=== PATIENT | male | born 1970 | race Two or more races ===

== ENCOUNTER 2020-05-30 02:17 | Inpatient (IN) | payer BC, OTHER ==
[~2020-05-30] VITALS: Ht 175.3 cm; Wt 90.1 kg
[2020-05-30] MEDS ORDERED: PLEASE ENTER ALLERGIES MC SCH (02:30)
[2020-05-30] MEDS ORDERED: methylPREDNISolone SOD SUCC 125 MG/2 ML IV ONE (02:30)
[2020-05-30 02:54] LABS: MEAN CORPUSCULAR HGB CONC 32.8 g/dL (33.2-36.2); MEAN PLATELET VOLUME 8.4 fL (7.4-10.4)
[2020-05-30 02:56] LABS: BASOPHILS % (AUTO) 0 % (0-1); EOSINOPHILS % (AUTO) 1 % (1-7); LYMPHOCYTES % (AUTO) 8 % (22-44); MEAN CORPUSCULAR HEMOGLOBIN 27.6 pg (27.5-34.5); MONOCYTES % (AUTO) 6 % (2-9); NEUTROPHILS % (AUTO) 84 % (42-75); PLATELET COUNT 264 x10^3/uL (130-400); RED BLOOD COUNT 4.21 x10^6/uL (4.38-5.82); RED CELL DISTRIBUTION WIDTH 14.3 % (9.4-14.8)
[2020-05-30 02:58] LABS: MD NO
--- NOTE | 2020-05-30 03:00 | NUR ---
PT IS COVID + FOR THE LAST 2 WEEKS, PT C/O INCREASED SOB. [facility] STATED PT WAS IN THE 70% AT ROOM AIR AT CONTACT AND 87 ON 15L O2 NRB.
[2020-05-30 03:03] LABS: ALANINE AMINOTRANSFERASE 26 U/L (12-78); ALBUMIN 0.8 g/dL (3.4-5.0); ANION GAP 10 mmol/L (5-15); CALCIUM 8.1 mg/dL (8.5-10.1); CHLORIDE 107 mmol/L (98-107); CREATININE 3.66 mg/dL (0.7-1.3)
[2020-05-30 03:07] LABS: ALKALINE PHOSPHATASE 96 U/L (45-117); BILIRUBIN,TOTAL 0.3 mg/dL (0.2-1.0); TOTAL PROTEIN 6.1 g/dL (6.4-8.2); TROPONIN I 0.024 ng/mL (0.000-0.045)
[2020-05-30] MEDS ORDERED: methylPREDNISolone SOD SUCC 125 MG/2 ML ONE (03:11)
--- NOTE | 2020-05-30 03:53 | NUR ---
BREAK RN: PT. VS UPDATED AND STABLE. DR. ESPITIA IN TO DISCUSS PLAN FOR ADMISSION WITH PT.
[2020-05-30] MEDS ORDERED: CEFTRIAXONE PMX 1GM/50ML 50 ML IV ONE (04:00)
[2020-05-30] MEDS ORDERED: AZITHROMYCIN 500 MG in SODIUM CHLORIDE 0.9% 250 ML IV ONE (04:00)
[2020-05-30] MEDS ORDERED: OXYcodone IR 5MG TABLET PO PRN (04:30)
[2020-05-30] MEDS ORDERED: BISACODYL 10 MG SUPP PR PRN (04:30)
[2020-05-30] MEDS ORDERED: ONDANSETRON ODT 4 MG PO PRN (04:30)
[2020-05-30] MEDS ORDERED: ACETAMINOPHEN 325 MG TABLET PO PRN (04:30)
[2020-05-30] MEDS ORDERED: DEXAMETHASONE 4 MG/ML, 1ML IVPush SCH (04:30)
[2020-05-30] MEDS ORDERED: hydrALAzine 20 MG/ML, 1ML IVPush PRN (04:30)
[2020-05-30] MEDS ORDERED: DOCUSATE 100 MG CAPSULE PO PRN (04:30)
[2020-05-30] MEDS ORDERED: PROMETHAZINE 25 MG/ML, 1ML IM PRN (04:30)
[2020-05-30] MEDS ORDERED: SODIUM CHLORIDE 0.9% 1,000 ML IV SCH (04:30)
[2020-05-30] MEDS ORDERED: POLYETHYLENE GLYCOL 17 GM PACKET PO PRN (04:30)
[2020-05-30] MEDS ORDERED: ONDANSETRON 2MG/ML, 2ML IVPush PRN (04:30)
[2020-05-30] MEDS ORDERED: morphine SULFATE 10 MG/ML, 1ML IVPush PRN (04:30)
[2020-05-30] MEDS ORDERED: CEFTRIAXONE PMX 1GM/50ML 50 ML ONE (04:46)
[2020-05-30 05:36] VITALS: BP 133/87
[2020-05-30] MEDS: INSULIN LISPRO 100 UNITS/ML, PEN SQ-INSULIN SCH ×4 (06:11→20:24)
[2020-05-30 06:38] VITALS: BP 134/88
[2020-05-30] MEDS ORDERED: INSU100I13 INJ (08:21)
[2020-05-30] MEDS ORDERED: INSULIN GLARGINE 100 UNITS/ML, PEN SQ-INSULIN SCH ×2 (09:00→21:00)
[2020-05-30] MEDS ORDERED: REMDESIVIR 100 MG in SODIUM CHLORIDE 0.9% 250 ML IVPB ONE (09:00)
[2020-05-30] MEDS ORDERED: ENOXAPARIN 40 MG/0.4 ML SQ SCH (09:00)
[2020-05-30] MEDS: CHOLECALCIFEROL 5,000u TAB PO SCH (10:04)
[2020-05-30] MEDS: ASCORBIC ACID 500 MG TABLET PO SCH ×2 (10:04→17:12)
[2020-05-30] MEDS: ZINC SULFATE 220 MG CAPSULE PO SCH (10:05)
[2020-05-30] MEDS: THIAMINE 100MG TABLET PO SCH (10:05)
[2020-05-30] MEDS: DEXAMETHASONE 4 MG/ML, 1ML IVPush SCH (10:05)
[2020-05-30] MEDS ORDERED: HEPARIN 5,000 UNITS/ML, 1ML IV ONE (16:00)
[2020-05-30 16:32] LABS: MICROSCOPIC AUTO
[2020-05-30 16:33] LABS: CHLORIDE,URINE RANDOM 19 mmol/L; POTASSIUM,URINE RANDOM 33 mmol/L; SODIUM,URINE RANDOM 17 mmol/L
[2020-05-30] MEDS: HEPARIN 25,000 UNITS/250ML PMX 250 ML IV PRN (16:58)
[2020-05-31] MEDS: INSULIN LISPRO 100 UNITS/ML, PEN SQ-INSULIN SCH ×6 (01:03→19:41)
[2020-05-31] MEDS: CEFTRIAXONE PMX 1GM/50ML 50 ML IV SCH (01:03)
[2020-05-31] MEDS: AZITHROMYCIN 500 MG in SODIUM CHLORIDE 0.9% 250 ML IV SCH (02:58)
[2020-05-31 03:58] LABS: BASOPHILS % (AUTO) 0 % (0-1); EOSINOPHILS % (AUTO) 0 % (1-7); LYMPHOCYTES % (AUTO) 8 % (22-44); MEAN CORPUSCULAR HEMOGLOBIN 27.4 pg (27.5-34.5); MEAN PLATELET VOLUME 8.1 fL (7.4-10.4); MONOCYTES % (AUTO) 5 % (2-9); NEUTROPHILS % (AUTO) 87 % (42-75); PLATELET COUNT 234 x10^3/uL (130-400); RED BLOOD COUNT 4.06 x10^6/uL (4.38-5.82); RED CELL DISTRIBUTION WIDTH 14.4 % (9.4-14.8)
[2020-05-31 03:59] LABS: MD NO
[2020-05-31 04:08] LABS: ALANINE AMINOTRANSFERASE 36 U/L (12-78); ALBUMIN 0.7 g/dL (3.4-5.0); ANION GAP 10 mmol/L (5-15); CALCIUM 8.4 mg/dL (8.5-10.1); CHLORIDE 113 mmol/L (98-107)
[2020-05-31 04:17] LABS: ALKALINE PHOSPHATASE 111 U/L (45-117); BILIRUBIN,TOTAL 0.2 mg/dL (0.2-1.0); CHOL/HDL RATIO 11.2; CHOLESTEROL, TOTAL 191 mg/dL (140-239); CREATININE 3.22 mg/dL (0.7-1.3); HDL CHOL % 9 % (26-37); HDL CHOLESTEROL (DIRECT) 17 mg/dL (40-60); LDL CHOLESTEROL,CALCULATED 114 mg/dL (54-169); LDL/HDL RATIO 6.7 (0.5-3.0); TOTAL PROTEIN 5.7 g/dL (6.4-8.2); TRIGLYCERIDES 302 mg/dL (50-200); VLDL CHOLESTEROL 60 mg/dL (0-25)
[2020-05-31] MEDS: HEPARIN 5,000 UNITS/ML, 1ML IV PRN ×2 (05:15→12:55)
[2020-05-31 09:00] LABS: FREE T4 (FREE THYROXINE) 1.01 ng/dL (0.76-1.46)
[2020-05-31] MEDS ORDERED: INSULIN GLARGINE 100 UNITS/ML, PEN SQ-INSULIN SCH (09:00)
[2020-05-31] MEDS: ZINC SULFATE 220 MG CAPSULE PO SCH (09:01)
[2020-05-31] MEDS: THIAMINE 100MG TABLET PO SCH (09:01)
[2020-05-31] MEDS: ASCORBIC ACID 500 MG TABLET PO SCH ×2 (09:01→17:11)
[2020-05-31] MEDS: DEXAMETHASONE 4 MG/ML, 1ML IVPush SCH (09:01)
[2020-05-31] MEDS: CHOLECALCIFEROL 5,000u TAB PO SCH (09:01)
[2020-05-31] MEDS: REMDESIVIR 50 MG in SODIUM CHLORIDE 0.9% 250 ML IVPB SCH (10:31)
[2020-05-31] MEDS: SODIUM BICARBONATE 650 MG TABLET PO SCH ×2 (10:34→19:40)
[2020-05-31] MEDS: HEPARIN 25,000 UNITS/250ML PMX 250 ML IV PRN (14:29)
[2020-05-31] MEDS ORDERED: INSULIN LISPRO 100 UNITS/ML, PEN SQ-INSULIN ONE (18:30)
[2020-05-31] MEDS: INSULIN GLARGINE 100 UNITS/ML, PEN SQ-INSULIN SCH (19:42)
[2020-06-01] MEDS: INSULIN LISPRO 100 UNITS/ML, PEN SQ-INSULIN SCH ×6 (00:22→20:02)
[2020-06-01] MEDS: CEFTRIAXONE PMX 1GM/50ML 50 ML IV SCH (00:23)
[2020-06-01] MEDS: AZITHROMYCIN 500 MG in SODIUM CHLORIDE 0.9% 250 ML IV SCH (04:18)
[2020-06-01 04:50] LABS: ALANINE AMINOTRANSFERASE 43 U/L (12-78); ALBUMIN 0.8 g/dL (3.4-5.0); ANION GAP 9 mmol/L (5-15); CALCIUM 8.2 mg/dL (8.5-10.1); CHLORIDE 113 mmol/L (98-107); CREATININE 2.63 mg/dL (0.7-1.3)
[2020-06-01 04:52] LABS: ALKALINE PHOSPHATASE 155 U/L (45-117); BILIRUBIN,TOTAL 0.2 mg/dL (0.2-1.0); TOTAL PROTEIN 5.9 g/dL (6.4-8.2)
[2020-06-01 07:32] LABS: BASOPHILS % (AUTO) 0 % (0-1); EOSINOPHILS % (AUTO) 0 % (1-7); LYMPHOCYTES % (AUTO) 5 % (22-44); MEAN CORPUSCULAR HGB CONC 32.8 g/dL (33.2-36.2); MEAN PLATELET VOLUME 9.4 fL (7.4-10.4); MONOCYTES % (AUTO) 3 % (2-9); NEUTROPHILS % (AUTO) 92 % (42-75); PLATELET COUNT 296 x10^3/uL (130-400); RED BLOOD COUNT 4.37 x10^6/uL (4.38-5.82); RED CELL DISTRIBUTION WIDTH 14.7 % (9.4-14.8)
[2020-06-01 07:41] LABS: MD NO
[2020-06-01] MEDS: HEPARIN 25,000 UNITS/250ML PMX 250 ML IV PRN (09:11)
[2020-06-01] MEDS: ZINC SULFATE 220 MG CAPSULE PO SCH (09:16)
[2020-06-01] MEDS: CHOLECALCIFEROL 5,000u TAB PO SCH (09:16)
[2020-06-01] MEDS: DEXAMETHASONE 4 MG/ML, 1ML IVPush SCH (09:16)
[2020-06-01] MEDS: SODIUM BICARBONATE 650 MG TABLET PO SCH ×4 (09:16→20:02)
[2020-06-01] MEDS: ASCORBIC ACID 500 MG TABLET PO SCH ×2 (09:16→16:35)
[2020-06-01] MEDS: THIAMINE 100MG TABLET PO SCH (09:16)
[2020-06-01] MEDS: INSULIN GLARGINE 100 UNITS/ML, PEN SQ-INSULIN SCH ×2 (09:17→20:02)
[2020-06-01] MEDS: REMDESIVIR 50 MG in SODIUM CHLORIDE 0.9% 250 ML IVPB SCH (10:08)
[2020-06-02] MEDS: INSULIN LISPRO 100 UNITS/ML, PEN SQ-INSULIN SCH ×7 (00:56→23:37)
[2020-06-02] MEDS: CEFTRIAXONE PMX 1GM/50ML 50 ML IV SCH (01:59)
[2020-06-02] MEDS: AZITHROMYCIN 500 MG in SODIUM CHLORIDE 0.9% 250 ML IV SCH (02:13)
[2020-06-02 04:34] LABS: BASOPHILS % (AUTO) 0 % (0-1); EOSINOPHILS % (AUTO) 0 % (1-7); LYMPHOCYTES % (AUTO) 7 % (22-44); MEAN PLATELET VOLUME 8.4 fL (7.4-10.4); MONOCYTES % (AUTO) 6 % (2-9); NEUTROPHILS % (AUTO) 87 % (42-75); PLATELET COUNT 271 x10^3/uL (130-400); RED BLOOD COUNT 4.46 x10^6/uL (4.38-5.82); RED CELL DISTRIBUTION WIDTH 14.8 % (9.4-14.8)
[2020-06-02 04:36] LABS: MD NO
[2020-06-02 04:41] LABS: ALANINE AMINOTRANSFERASE 47 U/L (12-78); ALBUMIN 0.9 g/dL (3.4-5.0); ANION GAP 9 mmol/L (5-15); CALCIUM 8.1 mg/dL (8.5-10.1); CHLORIDE 116 mmol/L (98-107); CREATININE 2.45 mg/dL (0.7-1.3)
[2020-06-02 04:44] LABS: ALKALINE PHOSPHATASE 113 U/L (45-117); BILIRUBIN,TOTAL 0.1 mg/dL (0.2-1.0); TOTAL PROTEIN 5.6 g/dL (6.4-8.2)
[2020-06-02] MEDS: HEPARIN 25,000 UNITS/250ML PMX 250 ML IV PRN (04:56)
[2020-06-02] MEDS: INSULIN GLARGINE 100 UNITS/ML, PEN SQ-INSULIN SCH (09:00)
[2020-06-02] MEDS: THIAMINE 100MG TABLET PO SCH (09:08)
[2020-06-02] MEDS: DEXAMETHASONE 4 MG/ML, 1ML IVPush SCH (09:08)
[2020-06-02] MEDS: ASCORBIC ACID 500 MG TABLET PO SCH ×2 (09:08→17:36)
[2020-06-02] MEDS: ZINC SULFATE 220 MG CAPSULE PO SCH (09:08)
[2020-06-02] MEDS: SODIUM BICARBONATE 650 MG TABLET PO SCH ×3 (09:08→20:05)
[2020-06-02] MEDS: CHOLECALCIFEROL 5,000u TAB PO SCH (09:08)
[2020-06-02] MEDS: REMDESIVIR 50 MG in SODIUM CHLORIDE 0.9% 250 ML IVPB SCH (10:36)
[2020-06-02] MEDS ORDERED: INSULIN GLARGINE 100 UNITS/ML, PEN SQ-INSULIN SCH (21:00)
[2020-06-03] MEDS: HEPARIN 25,000 UNITS/250ML PMX 250 ML IV PRN ×2 (03:05→23:52)
[2020-06-03] MEDS: CEFTRIAXONE PMX 1GM/50ML 50 ML IV SCH (03:07)
[2020-06-03] MEDS: AZITHROMYCIN 500 MG in SODIUM CHLORIDE 0.9% 250 ML IV SCH (04:01)
[2020-06-03] MEDS: INSULIN LISPRO 100 UNITS/ML, PEN SQ-INSULIN SCH ×6 (04:07→23:57)
[2020-06-03 04:58] LABS: ALBUMIN 0.9 g/dL (3.4-5.0); ANION GAP 10 mmol/L (5-15); CALCIUM 8.1 mg/dL (8.5-10.1); CHLORIDE 115 mmol/L (98-107)
[2020-06-03 05:02] LABS: ALANINE AMINOTRANSFERASE 93 U/L (12-78); ALKALINE PHOSPHATASE 137 U/L (45-117); BILIRUBIN,TOTAL 0.2 mg/dL (0.2-1.0); CREATININE 2.31 mg/dL (0.7-1.3); TOTAL PROTEIN 5.4 g/dL (6.4-8.2)
[2020-06-03 05:03] LABS: D-DIMER 8.82 ug/mlFEU (0.00-0.52)
[2020-06-03] MEDS: THIAMINE 100MG TABLET PO SCH (08:20)
[2020-06-03] MEDS: ASCORBIC ACID 500 MG TABLET PO SCH ×2 (08:21→17:13)
[2020-06-03] MEDS: DEXAMETHASONE 4 MG/ML, 1ML IVPush SCH (08:21)
[2020-06-03] MEDS: CHOLECALCIFEROL 5,000u TAB PO SCH (08:21)
[2020-06-03] MEDS: ZINC SULFATE 220 MG CAPSULE PO SCH (08:21)
[2020-06-03] MEDS: SODIUM BICARBONATE 650 MG TABLET PO SCH ×3 (08:21→21:54)
[2020-06-03] MEDS: REMDESIVIR 50 MG in SODIUM CHLORIDE 0.9% 250 ML IVPB SCH (11:01)
[2020-06-03] MEDS ORDERED: INSULIN LISPRO 100 UNITS/ML, PEN SQ-INSULIN STA (21:46)
[2020-06-03] MEDS ORDERED: INSULIN LISPRO 100 UNITS/ML, PEN SQ-INSULIN ONE (22:00)
[2020-06-04] MEDS: CEFTRIAXONE PMX 1GM/50ML 50 ML IV SCH (02:56)
[2020-06-04] MEDS: INSULIN LISPRO 100 UNITS/ML, PEN SQ-INSULIN SCH ×5 (03:39→20:16)
[2020-06-04 04:02] LABS: MEAN CORPUSCULAR HEMOGLOBIN 26.6 pg (27.5-34.5); MEAN CORPUSCULAR HGB CONC 32.1 g/dL (33.2-36.2); MEAN PLATELET VOLUME 8.6 fL (7.4-10.4); PLATELET COUNT 217 x10^3/uL (130-400); RED BLOOD COUNT 4.25 x10^6/uL (4.38-5.82); RED CELL DISTRIBUTION WIDTH 14.9 % (9.4-14.8)
[2020-06-04 04:11] LABS: ANION GAP 7 mmol/L (5-15); CALCIUM 8.4 mg/dL (8.5-10.1); CHLORIDE 115 mmol/L (98-107)
[2020-06-04 04:12] LABS: CREATININE 2.31 mg/dL (0.7-1.3)
[2020-06-04 04:19] LABS: D-DIMER 9.57 ug/mlFEU (0.00-0.52)
[2020-06-04 05:01] LABS: MD YES
[2020-06-04 05:02] LABS: ANISOCYTOSIS 1+; BAND#(MANUAL) 0.32 x10^3/uL; BANDS%(MANUAL) 2 % (0-7); LYMPH#(MANUAL) 1.43 x10^3/uL (1-3.4); LYMPHS% (MANUAL) 9 % (22-44); METAMYELOCYTES# (MANUAL) 0.32 x10^3/uL (0-0); METAMYELOCYTES% (MANUAL) 2 % (0-1); MONOS#(MANUAL) 1.43 x10^3/uL (0.3-2.7); MONOS% (MANUAL) 9 % (2-9); OVALOCYTES 1+; SEGS% (MANUAL) 78 % (42-75)
[2020-06-04 05:03] LABS: <PLATELET ESTIMATE> ADEQUATE; <PLT MORPHOLOGY> NORMAL PLT MORPH; POLYCHROMASIA 1+
[2020-06-04] MEDS: SODIUM BICARBONATE 650 MG TABLET PO SCH ×3 (08:12→20:16)
[2020-06-04] MEDS: DEXAMETHASONE 4 MG/ML, 1ML IVPush SCH (08:12)
[2020-06-04] MEDS: THIAMINE 100MG TABLET PO SCH (08:13)
[2020-06-04] MEDS: ZINC SULFATE 220 MG CAPSULE PO SCH (08:13)
[2020-06-04] MEDS: ASCORBIC ACID 500 MG TABLET PO SCH ×2 (08:13→16:43)
[2020-06-04] MEDS: CHOLECALCIFEROL 5,000u TAB PO SCH (08:13)
[2020-06-05] MEDS: INSULIN LISPRO 100 UNITS/ML, PEN SQ-INSULIN SCH ×6 (00:11→20:00)
[2020-06-05] MEDS: CEFTRIAXONE PMX 1GM/50ML 50 ML IV SCH (03:15)
[2020-06-05] MEDS: HEPARIN 25,000 UNITS/250ML PMX 250 ML IV PRN (03:22)
[2020-06-05 04:25] LABS: MEAN CORPUSCULAR HEMOGLOBIN 26.8 pg (27.5-34.5); MEAN CORPUSCULAR HGB CONC 32.3 g/dL (33.2-36.2); MEAN PLATELET VOLUME 8.9 fL (7.4-10.4); PLATELET COUNT 201 x10^3/uL (130-400); RED BLOOD COUNT 4.53 x10^6/uL (4.38-5.82); RED CELL DISTRIBUTION WIDTH 15.3 % (9.4-14.8)
[2020-06-05 04:37] LABS: ANION GAP 6 mmol/L (5-15); CALCIUM 8.3 mg/dL (8.5-10.1); CHLORIDE 115 mmol/L (98-107); CREATININE 2.03 mg/dL (0.7-1.3)
[2020-06-05 04:38] LABS: BILIRUBIN,TOTAL 0.1 mg/dL (0.2-1.0)
[2020-06-05 05:47] LABS: MD YES
[2020-06-05 05:51] LABS: ANISOCYTOSIS 1+; BAND#(MANUAL) 0.37 x10^3/uL; BANDS%(MANUAL) 2 % (0-7); LYMPH#(MANUAL) 1.83 x10^3/uL (1-3.4); LYMPHS% (MANUAL) 10 % (22-44); METAMYELOCYTES# (MANUAL) 0.55 x10^3/uL (0-0); METAMYELOCYTES% (MANUAL) 3 % (0-1); MONOS#(MANUAL) 0.73 x10^3/uL (0.3-2.7); MONOS% (MANUAL) 4 % (2-9); SEG#(MANUAL) 14.82 x10^3/uL (1.8-6.8); SEGS% (MANUAL) 81 % (42-75)
[2020-06-05 05:52] LABS: OVALOCYTES 1+
[2020-06-05 05:53] LABS: <PLATELET ESTIMATE> ADEQUATE; <PLT MORPHOLOGY> NORMAL PLT MORPH; POLYCHROMASIA 1+
[2020-06-05] MEDS: DEXAMETHASONE 4 MG/ML, 1ML IVPush SCH (08:21)
[2020-06-05] MEDS: ASCORBIC ACID 500 MG TABLET PO SCH ×2 (08:22→16:38)
[2020-06-05] MEDS: SODIUM BICARBONATE 650 MG TABLET PO SCH ×3 (08:22→20:49)
[2020-06-05] MEDS: ZINC SULFATE 220 MG CAPSULE PO SCH (08:22)
[2020-06-05] MEDS: CHOLECALCIFEROL 5,000u TAB PO SCH (08:22)
[2020-06-05] MEDS: THIAMINE 100MG TABLET PO SCH (08:22)
[2020-06-06] MEDS: INSULIN LISPRO 100 UNITS/ML, PEN SQ-INSULIN SCH ×7 (00:12→23:51)
[2020-06-06 04:39] LABS: MEAN CORPUSCULAR HEMOGLOBIN 26.6 pg (27.5-34.5); MEAN CORPUSCULAR HGB CONC 32.2 g/dL (33.2-36.2); MEAN PLATELET VOLUME 8.6 fL (7.4-10.4); PLATELET COUNT 191 x10^3/uL (130-400); RED BLOOD COUNT 4.51 x10^6/uL (4.38-5.82); RED CELL DISTRIBUTION WIDTH 15.3 % (9.4-14.8)
[2020-06-06] MEDS: HEPARIN 25,000 UNITS/250ML PMX 250 ML IV PRN (04:44)
[2020-06-06 04:46] LABS: ANION GAP 8 mmol/L (5-15); CALCIUM 8.2 mg/dL (8.5-10.1); CHLORIDE 115 mmol/L (98-107); CREATININE 1.97 mg/dL (0.7-1.3)
[2020-06-06 04:47] LABS: BILIRUBIN,TOTAL 0.2 mg/dL (0.2-1.0)
[2020-06-06 05:43] LABS: MD YES
[2020-06-06 05:45] LABS: ANISOCYTOSIS 1+; BAND#(MANUAL) 0.36 x10^3/uL; BANDS%(MANUAL) 2 % (0-7); LYMPH#(MANUAL) 1.42 x10^3/uL (1-3.4); LYMPHS% (MANUAL) 8 % (22-44); METAMYELOCYTES# (MANUAL) 0.18 x10^3/uL (0-0); METAMYELOCYTES% (MANUAL) 1 % (0-1); MONOS#(MANUAL) 1.78 x10^3/uL (0.3-2.7); MONOS% (MANUAL) 10 % (2-9); OVALOCYTES 1+; POLYCHROMASIA 1+; SEG#(MANUAL) 14.06 x10^3/uL (1.8-6.8); SEGS% (MANUAL) 79 % (42-75)
[2020-06-06 05:47] LABS: <PLATELET ESTIMATE> ADEQUATE; <PLT MORPHOLOGY> NORMAL PLT MORPH
[2020-06-06] MEDS: ASCORBIC ACID 500 MG TABLET PO SCH ×2 (09:09→16:23)
[2020-06-06] MEDS: CHOLECALCIFEROL 5,000u TAB PO SCH (09:10)
[2020-06-06] MEDS: DEXAMETHASONE 4 MG/ML, 1ML IVPush SCH (09:10)
[2020-06-06] MEDS: ZINC SULFATE 220 MG CAPSULE PO SCH (09:10)
[2020-06-06] MEDS: SODIUM BICARBONATE 650 MG TABLET PO SCH ×3 (09:10→20:04)
[2020-06-06] MEDS: THIAMINE 100MG TABLET PO SCH (09:10)
[2020-06-07] MEDS: INSULIN LISPRO 100 UNITS/ML, PEN SQ-INSULIN SCH ×5 (04:07→20:46)
[2020-06-07 04:36] LABS: MEAN CORPUSCULAR HEMOGLOBIN 26.8 pg (27.5-34.5); MEAN PLATELET VOLUME 8.8 fL (7.4-10.4); PLATELET COUNT 188 x10^3/uL (130-400); RED BLOOD COUNT 4.36 x10^6/uL (4.38-5.82); RED CELL DISTRIBUTION WIDTH 15.4 % (9.4-14.8)
[2020-06-07 04:50] LABS: ANION GAP 6 mmol/L (5-15); CHLORIDE 110 mmol/L (98-107); CREATININE 2.47 mg/dL (0.7-1.3)
[2020-06-07 04:51] LABS: BILIRUBIN,TOTAL 0.2 mg/dL (0.2-1.0)
[2020-06-07 05:06] LABS: MD YES
[2020-06-07 05:08] LABS: <PLATELET ESTIMATE> ADEQUATE; <PLT MORPHOLOGY> NORMAL PLT MORPH; ANISOCYTOSIS 1+; BAND#(MANUAL) 0.52 x10^3/uL; BANDS%(MANUAL) 3 % (0-7); LYMPH#(MANUAL) 1.22 x10^3/uL (1-3.4); LYMPHS% (MANUAL) 7 % (22-44); METAMYELOCYTES# (MANUAL) 0.17 x10^3/uL (0-0); METAMYELOCYTES% (MANUAL) 1 % (0-1); MONOS#(MANUAL) 0.17 x10^3/uL (0.3-2.7); MONOS% (MANUAL) 1 % (2-9); SEG#(MANUAL) 15.31 x10^3/uL (1.8-6.8); SEGS% (MANUAL) 88 % (42-75)
[2020-06-07] MEDS: THIAMINE 100MG TABLET PO SCH (09:06)
[2020-06-07] MEDS: CHOLECALCIFEROL 5,000u TAB PO SCH (09:06)
[2020-06-07] MEDS: SODIUM BICARBONATE 650 MG TABLET PO SCH ×3 (09:07→20:46)
[2020-06-07] MEDS: ASCORBIC ACID 500 MG TABLET PO SCH ×2 (09:07→16:04)
[2020-06-07] MEDS: ZINC SULFATE 220 MG CAPSULE PO SCH (09:07)
[2020-06-07] MEDS: DEXAMETHASONE 4 MG/ML, 1ML IVPush SCH (09:07)
[2020-06-07] MEDS ORDERED: METO100T7 PO (14:01)
[2020-06-07] MEDS ORDERED: GLIM4TAB8 PO (14:03)
[2020-06-07] MEDS ORDERED: LISI-420 PO (14:03)
[2020-06-07] MEDS: METOPROLOL TARTRATE 50 MG TAB PO SCH (20:46)
[2020-06-07] MEDS: INSULIN GLARGINE 100 UNITS/ML, PEN SQ-INSULIN SCH (20:47)
[2020-06-07] MEDS ORDERED: INSULIN LISPRO 100 UNITS/ML, PEN SQ-INSULIN SCH (21:00)
[2020-06-08] MEDS: INSULIN LISPRO 100 UNITS/ML, PEN SQ-INSULIN SCH ×4 (03:14→20:40)
[2020-06-08 05:08] LABS: MEAN CORPUSCULAR HEMOGLOBIN 26.7 pg (27.5-34.5); MEAN CORPUSCULAR HGB CONC 32.1 g/dL (33.2-36.2); MEAN PLATELET VOLUME 9.4 fL (7.4-10.4); PLATELET COUNT 177 x10^3/uL (130-400); RED BLOOD COUNT 4.17 x10^6/uL (4.38-5.82); RED CELL DISTRIBUTION WIDTH 15.5 % (9.4-14.8)
[2020-06-08 05:16] LABS: ALANINE AMINOTRANSFERASE 102 U/L (12-78); ALBUMIN 1.2 g/dL (3.4-5.0); ANION GAP 7 mmol/L (5-15); CALCIUM 8.2 mg/dL (8.5-10.1); CHLORIDE 110 mmol/L (98-107); CREATININE 2.54 mg/dL (0.7-1.3)
[2020-06-08 05:18] LABS: ALKALINE PHOSPHATASE 180 U/L (45-117); BILIRUBIN,TOTAL 0.1 mg/dL (0.2-1.0); TOTAL PROTEIN 5.3 g/dL (6.4-8.2)
[2020-06-08 06:35] LABS: MD YES
[2020-06-08 06:37] LABS: LYMPH#(MANUAL) 0.82 x10^3/uL (1-3.4); LYMPHS% (MANUAL) 5 % (22-44); METAMYELOCYTES# (MANUAL) 0.16 x10^3/uL (0-0); METAMYELOCYTES% (MANUAL) 1 % (0-1); MONOS#(MANUAL) 1.14 x10^3/uL (0.3-2.7); MONOS% (MANUAL) 7 % (2-9); MYELOCYTES# (MANUAL) 0.33 x10^3/uL (0-0); MYELOCYTES% (MANUAL) 2 % (0-0); SEGS% (MANUAL) 85 % (42-75)
[2020-06-08 06:38] LABS: <PLATELET ESTIMATE> ADEQUATE; <PLT MORPHOLOGY> NORMAL PLT MORPH; ANISOCYTOSIS 1+; OVALOCYTES 1+
[2020-06-08] MEDS: THIAMINE 100MG TABLET PO SCH (07:52)
[2020-06-08] MEDS: METOPROLOL TARTRATE 50 MG TAB PO SCH ×2 (07:52→20:41)
[2020-06-08] MEDS: DEXAMETHASONE 4 MG/ML, 1ML IVPush SCH (07:52)
[2020-06-08] MEDS: SODIUM BICARBONATE 650 MG TABLET PO SCH ×3 (07:52→20:41)
[2020-06-08] MEDS: ASCORBIC ACID 500 MG TABLET PO SCH ×2 (07:53→16:52)
[2020-06-08] MEDS: CHOLECALCIFEROL 5,000u TAB PO SCH (07:53)
[2020-06-08] MEDS: ZINC SULFATE 220 MG CAPSULE PO SCH (07:53)
[2020-06-08] MEDS ORDERED: INSULIN GLARGINE 100 UNITS/ML, PEN SQ-INSULIN SCH (09:00)
[2020-06-08] MEDS: HEPARIN 25,000 UNITS/250ML PMX 250 ML IV PRN (11:45)
[2020-06-08] MEDS: INSULIN GLARGINE 100 UNITS/ML, PEN SQ-INSULIN SCH (20:40)
[2020-06-09] MEDS: INSULIN LISPRO 100 UNITS/ML, PEN SQ-INSULIN SCH ×4 (02:58→21:12)
[2020-06-09 04:36] LABS: ANION GAP 7 mmol/L (5-15); CALCIUM 8.1 mg/dL (8.5-10.1); CHLORIDE 113 mmol/L (98-107); CREATININE 2.55 mg/dL (0.7-1.3)
[2020-06-09 04:40] LABS: MEAN CORPUSCULAR HEMOGLOBIN 27.1 pg (27.5-34.5); MEAN CORPUSCULAR HGB CONC 32.3 g/dL (33.2-36.2); MEAN PLATELET VOLUME 9.1 fL (7.4-10.4); PLATELET COUNT 158 x10^3/uL (130-400); RED BLOOD COUNT 3.98 x10^6/uL (4.38-5.82); RED CELL DISTRIBUTION WIDTH 15.4 % (9.4-14.8)
[2020-06-09 05:40] LABS: MD YES
[2020-06-09 05:41] LABS: BAND#(MANUAL) 0.33 x10^3/uL; BANDS%(MANUAL) 2 % (0-7); EOS#(MANUAL) 0.16 x10^3/uL (0.0-0.4); EOS% (MANUAL) 1 % (1-7); LYMPH#(MANUAL) 0.65 x10^3/uL (1-3.4); LYMPHS% (MANUAL) 4 % (22-44); METAMYELOCYTES# (MANUAL) 0.16 x10^3/uL (0-0); METAMYELOCYTES% (MANUAL) 1 % (0-1); MONOS% (MANUAL) 8 % (2-9); SEG#(MANUAL) 13.69 x10^3/uL (1.8-6.8); SEGS% (MANUAL) 84 % (42-75)
[2020-06-09 05:42] LABS: <PLATELET ESTIMATE> ADEQUATE; <PLT MORPHOLOGY> NORMAL PLT MORPH; OVALOCYTES 1+; POLYCHROMASIA 1+
[2020-06-09] MEDS: SODIUM BICARBONATE 650 MG TABLET PO SCH ×3 (08:47→21:01)
[2020-06-09] MEDS: METOPROLOL TARTRATE 50 MG TAB PO SCH ×3 (08:48→21:02)
[2020-06-09] MEDS: INSULIN GLARGINE 100 UNITS/ML, PEN SQ-INSULIN SCH ×2 (09:56→21:12)
[2020-06-09] MEDS: HEPARIN 25,000 UNITS/250ML PMX 250 ML IV PRN (13:00)
[2020-06-10] MEDS: INSULIN LISPRO 100 UNITS/ML, PEN SQ-INSULIN SCH ×4 (02:29→22:50)
[2020-06-10] MEDS: HEPARIN 25,000 UNITS/250ML PMX 250 ML IV PRN (06:19)
[2020-06-10 06:43] LABS: MEAN CORPUSCULAR HEMOGLOBIN 26.8 pg (27.5-34.5); MEAN CORPUSCULAR HGB CONC 31.8 g/dL (33.2-36.2); MEAN PLATELET VOLUME 9.5 fL (7.4-10.4); PLATELET COUNT 138 x10^3/uL (130-400); RED CELL DISTRIBUTION WIDTH 15.9 % (9.4-14.8)
[2020-06-10 06:55] LABS: ANION GAP 8 mmol/L (5-15); CALCIUM 8.2 mg/dL (8.5-10.1); CHLORIDE 114 mmol/L (98-107); CREATININE 2.35 mg/dL (0.7-1.3)
[2020-06-10 07:30] LABS: MD YES
[2020-06-10 07:32] LABS: BAND#(MANUAL) 0.52 x10^3/uL; BANDS%(MANUAL) 4 % (0-7); EOS#(MANUAL) 0.13 x10^3/uL (0.0-0.4); EOS% (MANUAL) 1 % (1-7); LYMPH#(MANUAL) 1.05 x10^3/uL (1-3.4); LYMPHS% (MANUAL) 8 % (22-44); MONOS#(MANUAL) 1.05 x10^3/uL (0.3-2.7); MONOS% (MANUAL) 8 % (2-9); SEG#(MANUAL) 10.35 x10^3/uL (1.8-6.8); SEGS% (MANUAL) 79 % (42-75)
[2020-06-10 07:33] LABS: <PLATELET ESTIMATE> DECREASED; <PLT MORPHOLOGY> NORMAL PLT MORPH; OVALOCYTES 1+
[2020-06-10] MEDS: SODIUM BICARBONATE 650 MG TABLET PO SCH ×3 (08:49→22:40)
[2020-06-10] MEDS: METOPROLOL TARTRATE 50 MG TAB PO SCH ×2 (08:49→22:39)
[2020-06-10] MEDS: INSULIN GLARGINE 100 UNITS/ML, PEN SQ-INSULIN SCH ×2 (09:00→23:43)
[2020-06-10 12:15] VITALS: BP 143/83
[2020-06-11] MEDS: INSULIN LISPRO 100 UNITS/ML, PEN SQ-INSULIN SCH ×4 (03:00→20:45)
[2020-06-11 04:32] LABS: BASOPHILS % (AUTO) 1 % (0-1); EOSINOPHILS % (AUTO) 1 % (1-7); LYMPHOCYTES % (AUTO) 17 % (22-44); MEAN CORPUSCULAR HEMOGLOBIN 27.3 pg (27.5-34.5); MEAN CORPUSCULAR HGB CONC 32.6 g/dL (33.2-36.2); MEAN PLATELET VOLUME 8.7 fL (7.4-10.4); MONOCYTES % (AUTO) 9 % (2-9); NEUTROPHILS % (AUTO) 72 % (42-75); PLATELET COUNT 126 x10^3/uL (130-400); RED BLOOD COUNT 3.72 x10^6/uL (4.38-5.82); RED CELL DISTRIBUTION WIDTH 15.6 % (9.4-14.8)
[2020-06-11 04:36] LABS: ANION GAP 5 mmol/L (5-15); CALCIUM 7.9 mg/dL (8.5-10.1); CHLORIDE 116 mmol/L (98-107); CREATININE 2.33 mg/dL (0.7-1.3)
[2020-06-11 04:37] LABS: MD NO
[2020-06-11] MEDS: METOPROLOL TARTRATE 50 MG TAB PO SCH ×2 (10:03→20:45)
[2020-06-11] MEDS: SODIUM BICARBONATE 650 MG TABLET PO SCH ×2 (10:03→20:45)
[2020-06-11] MEDS: INSULIN GLARGINE 100 UNITS/ML, PEN SQ-INSULIN SCH (10:03)
[2020-06-11] MEDS: AMLODIPINE 5 MG TABLET PO SCH (10:51)
[2020-06-12] MEDS: INSULIN LISPRO 100 UNITS/ML, PEN SQ-INSULIN SCH ×4 (03:00→19:57)
[2020-06-12 06:08] LABS: BASOPHILS % (AUTO) 0 % (0-1); EOSINOPHILS % (AUTO) 2 % (1-7); LYMPHOCYTES % (AUTO) 16 % (22-44); MEAN CORPUSCULAR HEMOGLOBIN 27.4 pg (27.5-34.5); MEAN CORPUSCULAR HGB CONC 32.5 g/dL (33.2-36.2); MEAN PLATELET VOLUME 8.9 fL (7.4-10.4); MONOCYTES % (AUTO) 10 % (2-9); NEUTROPHILS % (AUTO) 71 % (42-75); PLATELET COUNT 133 x10^3/uL (130-400); RED BLOOD COUNT 3.87 x10^6/uL (4.38-5.82); RED CELL DISTRIBUTION WIDTH 15.6 % (9.4-14.8)
[2020-06-12 06:10] LABS: MD NO
[2020-06-12 06:12] LABS: ALBUMIN 1.2 g/dL (3.4-5.0); ANION GAP 5 mmol/L (5-15); CALCIUM 8.2 mg/dL (8.5-10.1); CHLORIDE 116 mmol/L (98-107)
[2020-06-12 06:16] LABS: ALANINE AMINOTRANSFERASE 74 U/L (12-78); ALKALINE PHOSPHATASE 108 U/L (45-117); BILIRUBIN,TOTAL 0.4 mg/dL (0.2-1.0); CREATININE 2.41 mg/dL (0.7-1.3); TOTAL PROTEIN 5.1 g/dL (6.4-8.2)
[2020-06-12] MEDS: AMLODIPINE 5 MG TABLET PO SCH (08:46)
[2020-06-12] MEDS: METOPROLOL TARTRATE 50 MG TAB PO SCH ×2 (08:46→21:53)
[2020-06-12] MEDS: SODIUM BICARBONATE 650 MG TABLET PO SCH ×2 (08:46→21:52)
[2020-06-12] MEDS: INSULIN GLARGINE 100 UNITS/ML, PEN SQ-INSULIN SCH (08:47)
[2020-06-12] MEDS: SODIUM ZIRCONIUM CYCLOSILICATE 10 GM PO SCH ×3 (10:26→19:45)
[2020-06-12 13:04] VITALS: BP 123/78
[2020-06-12 20:17] VITALS: BP 152/83
[2020-06-13 01:44] VITALS: BP 146/80
[2020-06-13] MEDS: INSULIN LISPRO 100 UNITS/ML, PEN SQ-INSULIN SCH ×3 (02:37→16:46)
[2020-06-13 07:28] LABS: BASOPHILS % (AUTO) 1 % (0-1); EOSINOPHILS % (AUTO) 2 % (1-7); LYMPHOCYTES % (AUTO) 16 % (22-44); MEAN CORPUSCULAR HEMOGLOBIN 27.4 pg (27.5-34.5); MEAN CORPUSCULAR HGB CONC 32.2 g/dL (33.2-36.2); MONOCYTES % (AUTO) 9 % (2-9); NEUTROPHILS % (AUTO) 73 % (42-75); PLATELET COUNT 123 x10^3/uL (130-400); RED BLOOD COUNT 3.73 x10^6/uL (4.38-5.82); RED CELL DISTRIBUTION WIDTH 15.5 % (9.4-14.8)
[2020-06-13 07:33] LABS: MD NO
[2020-06-13 07:35] LABS: ALBUMIN 1.2 g/dL (3.4-5.0); ANION GAP 5 mmol/L (5-15); CALCIUM 8.3 mg/dL (8.5-10.1); CHLORIDE 114 mmol/L (98-107)
[2020-06-13 07:38] LABS: ALANINE AMINOTRANSFERASE 61 U/L (12-78); ALKALINE PHOSPHATASE 104 U/L (45-117); BILIRUBIN,TOTAL 0.2 mg/dL (0.2-1.0); CREATININE 2.37 mg/dL (0.7-1.3); TOTAL PROTEIN 5.1 g/dL (6.4-8.2)
[2020-06-13 07:51] VITALS: BP 158/86
[2020-06-13] MEDS: AMLODIPINE 5 MG TABLET PO SCH (10:09)
[2020-06-13] MEDS: SODIUM BICARBONATE 650 MG TABLET PO SCH (10:09)
[2020-06-13] MEDS: METOPROLOL TARTRATE 50 MG TAB PO SCH (10:10)
[2020-06-13] MEDS: SODIUM ZIRCONIUM CYCLOSILICATE 10 GM PO SCH ×2 (10:10→16:45)
[2020-06-13] MEDS: INSULIN GLARGINE 100 UNITS/ML, PEN SQ-INSULIN SCH (10:21)
[2020-06-13] MEDS ORDERED: DOXYCYCLINE 100MG TABLET PO SCH (11:00)
[2020-06-13] MEDS ORDERED: AMOXICILLIN/CLAV 875-125MG TABLET PO SCH (11:00)
[2020-06-13] MEDS ORDERED: DOXY100T PO (11:24)
[2020-06-13] MEDS ORDERED: SODI650T PO (11:24)
[2020-06-13] MEDS ORDERED: AMOX1TAB12 PO (11:24)
[2020-06-13] MEDS ORDERED: AMLO-150 PO (11:24)
[2020-06-13] MEDS ORDERED: METO50TA82 PO (11:24)
[2020-06-13] MEDS ORDERED: SODI10PO PO (11:24)
[2020-06-13 13:54] VITALS: BP 121/75
== END 2020-06-13 18:11 | disposition home or self-care (01) | DRG 177 ==
LOC: ED 05:37 → EDIP 05:38 → ICU 05:40 → 4EST 06-10 12:07
PROVIDERS: ADMIT Internal Medicine; ATTEND Internal Medicine
PROC: XW033E5 Introduction of Remdesivir Anti-infective into Peripheral Vein, Percutaneous Approach, New Technology Group 5 (ICD-10-PCS; principal; 2020-05-30)
PROC: 5A0935A Assistance with Respiratory Ventilation, Less than 24 Consecutive Hours, High Flow/Velocity Cannula (ICD-10-PCS; 2020-05-30)
PROC: 5A0935A Assistance with Respiratory Ventilation, Less than 24 Consecutive Hours, High Flow/Velocity Cannula (ICD-10-PCS; 2020-06-04)
PROC: 5A0935A Assistance with Respiratory Ventilation, Less than 24 Consecutive Hours, High Flow/Velocity Cannula (ICD-10-PCS; 2020-06-09)
DX: U07.1 COVID-19 (principal); J12.82 Pneumonia due to coronavirus disease 2019; N17.0 Acute kidney failure with tubular necrosis; J96.01 Acute respiratory failure with hypoxia; N18.4 Chronic kidney disease, stage 4 (severe); I13.0 Hypertensive heart and chronic kidney disease with heart failure and stage 1 through stage 4 chronic kidney disease, or unspecified chronic kidney disease; E87.2 Acidosis; E87.1 Hypo-osmolality and hyponatremia; I50.9 Heart failure, unspecified; I25.10 Atherosclerotic heart disease of native coronary artery without angina pectoris; E88.09 Other disorders of plasma-protein metabolism, not elsewhere classified; E87.8 Other disorders of electrolyte and fluid balance, not elsewhere classified; E87.5 Hyperkalemia; E78.5 Hyperlipidemia, unspecified; E78.00 Pure hypercholesterolemia, unspecified; E11.65 Type 2 diabetes mellitus with hyperglycemia; E11.649 Type 2 diabetes mellitus with hypoglycemia without coma; E11.22 Type 2 diabetes mellitus with diabetic chronic kidney disease; E07.81 Sick-euthyroid syndrome; D69.6 Thrombocytopenia, unspecified; D64.9 Anemia, unspecified; Z86.73 Personal history of transient ischemic attack (TIA), and cerebral infarction without residual deficits; Z95.5 Presence of coronary angioplasty implant and graft; Z87.891 Personal history of nicotine dependence; Z79.899 Other long term (current) drug therapy
CPT/HCPCS: 36600; 71045; 71250; 76770; 78580; 80048; 80053; 80061; 80074; 81001; 82247; 82306; 82436; 82570; 82728; 82803; 82947; 82962; 83036; 83605; 83615; 83735; 83880; 83970; 84132; 84133; 84300; 84439; 84443; 84481; 84484; 84550; 85025; 85379; 85384; 85520; 86022; 87040; 87081; 93005; 93306; 94660; 96365; 99291; G0378; J0456; J0696; J1100; J1644; A9540; C9898; J0360; J1815; J2930; J7050